=== PATIENT | male | born 1950 | race Caucasian/White ===

== ENCOUNTER 2018-12-09 16:31 | Inpatient (IN) | payer OTHER ==
--- NOTE | 2018-12-09 16:34 | EDPHY ---
H & P Time Seen by Provider: 12/09/18 16:31 Constitutional: Initial Vital Signs Temperature (C) 36.5 C 12/09/18 16:45 Heart Rate 80 12/09/18 16:45 Respiratory Rate 18 12/09/18 16:45 Blood Pressure 109/75 12/09/18 16:45 O2 Sat (%) 97 12/09/18 16:45 O2 Delivery Mode Room Air Allergies/Adverse Reactions: No Known Allergies Allergy (Unverified 12/09/18 16:50) Medical Decision Making - Diagnostics Imaging Results: Imaging Impressions Head CT 12/09/18 16:44 Impression: 1. No evidence for acute intracranial abnormality. 2. Mild periventricular and deep hemispheric white matter change, which is nonspecific and can be seen with small vessel ischemic disease. Results called and discussed with the evaluation assistant for Jacinto North M.D., on December 09, 2018 at 1650.. Head CTA 12/09/18 16:44 Impression: Mild narrowing of the petrous portion of the right internal carotid artery. Otherwise, unremarkable CT angiogram of the head and neck. Stenoses are calculated using [place] Symptomatic Carotid Endarterectomy Trial (NASCET) criteria. Findings and recommendations discussed with Jacinto North MD's evaluation assistant at 1738 hour, 12/09/2018. Neck CTA 12/09/18 16:44 Impression: Mild narrowing of the petrous portion of the right internal carotid artery. Otherwise, unremarkable CT angiogram of the head and neck. Stenoses are calculated using [place] Symptomatic Carotid Endarterectomy Trial (NASCET) criteria. Findings and recommendations discussed with Jacinto North MD's evaluation assistant at 1738 hour, 12/09/2018. Imaging: Discussed imaging studies w/ order desk caller Radiologist, I viewed and interpreted images myself ED Course/Re-evaluation: CHIEF COMPLAINT: Stroke alert HISTORY OF PRESENT ILLNESS: The patient is a 68 y/o male with a history of a TBI arriving via EMS as a stroke alert. Starting at 09:30, 7 hours ago, the patient was unable to say the words he was thinking and also developed a severe headache. Just prior to the onset of symptoms he took 2 bong hits, which is normal. After his symptoms started he went skiing. As his symptoms did not improve today and remained the same all day, he called EMS. EMS noted that the patient had difficult putting his sentences together. EMS gave the patient 50mcg IV Fentanyl for his headache and did an EKG which revealed occasional PVC's. The patient denies seeing a physician "in years". He is not on anticoagulants. No fever, body aches, lightheadedness, chest pain, heart palpitations, shortness of breath, cough, abdominal pain, urinary or bowel complaints, numbness, paresthesias. REVIEW OF SYSTEMS: A 10 point review of systems was performed and is negative with the exception of the elements mentioned in the history of present illness. PHYSICAL EXAM: HR, BP, O2 Sat, RR. Temp noted General Appearance: Alert, well hydrated, appropriate, and non-toxic appearing. Head: Atraumatic without scalp tenderness or obvious injury Eyes: Pupils equal, round, reactive to light and accommodation, EOMI, no trauma , no injection. Ears: Clear bilaterally, no perforation, normal landmarks Nose: Atraumatic, no rhinorrhea, clear. Throat: There is no erythema or exudates, no lesions, normal tonsils, mucus membranes moist. Neck: Supple, 2+ carotid upstroke, nontender, no lymphadenopathy. Respiratory: No retractions, no distress, no wheezes, and no accessory muscle use. Lungs are clear to auscultation bilaterally. Cardiovascular: Regular rate and rhythm, no murmurs, rubs, or gallops. Bilateral carotid, radial, dorsalis pedis, and posterior tibial pulses intact. Good capillary refill all extremities. Gastrointestinal: Abdomen is soft, nontender, non-distended, no masses, no rebound, no guarding, no peritoneal signs. Musculoskeletal: Normal active ROM of all extremities, atraumatic. Neurological: Dysarthric speech Alert and interactive. The patient has normal DTRs and non-focal, motor, sensory, and cerebellar exam. Skin: No rashes, good turgor, no nodules on palpation. Past medical history: TBI Past surgical history: Unknown Family history: Unknown Social history: Lives in [place], retired, single DIAGNOSTICS/PROCEDURES/CRITICAL CARE TIME: Head CT: No acute findings. Head CTA: No acute findings. Neck CTA: Mild narrowing of the petrous portion of the right internal carotid artery. Otherwise, unremarkable CT angiogram of the head and neck. DIFFERENTIAL DIAGNOSIS: The differential diagnosis for the patient's neurologic deficits included but was not limited to peripheral causes, central causes including CVA, TIA, electrolyte abnormalities and dehydration, cardiogenic causes, atypical causes like migraine syndrome. MEDICAL DECISION MAKING: The patient is a 68 y/o male with a history of a TBI arriving via EMS as a stroke alert. Starting at 09:30, 7 hours ago, the patient was unable to say the words he was thinking and also developed a severe headache. After his symptoms started he went skiing. As his symptoms did not improve today and remained the same all day, he called EMS. EMS noted that the patient had difficult putting his sentences together. On exam the patient is unable to state the words he is thinking. Patient has dysarthric speech and could have an infarct of Broca's area. He has an otherwise normal neuro exam and has no peripheral deficits. 1630: I met EMS upon arrival. 1648: Patient is back from CT. 1648: I spoke with the radiologist who reports that there are no acute findings on the head CT. Head/neck CTA ordered. 1649: Dr. Tate from [facility] was on the stroke robot. She does agree that this patient is having a Broca's aphasia but no other deficits. He is well out of the window for tPA since his symptoms started at 9:00 a.m.. Notably , he did ski all day. We are awaiting CT angiography of the neck and head. If there is any positive findings all discussed with Dr. Tate for possible transfer to [facility] otherwise we will keep the patient here in continue stroke workup. I have given this patient 1 aspirin. 1738: I spoke with Dr. Byrnes, radiologist, regarding patient's head/neck CTA. There is a minor narrowing of the right inferior carotid artery without flow limitations. 1752: I consulted with the hospitalist service, Dr. Gandara accepts admission of this patient. - Data Points Laboratory Results: Laboratory Results 12/09/18 16:35 12/09/18 16:35 12/09/18 12/09/18 12/09/18 16:41 16:37 16:36 WBC RBC Hgb POC Hgb 16.3 gm/dL gm/dL TNP (13.7-17.5) Hct POC Hct 48 % % TNP (40-51) MCV MCH MCHC RDW Plt Count MPV Neut % (Auto) Lymph % (Auto) [place] % (Auto) Eos % (Auto) Baso % (Auto) Nucleat RBC Rel Count Absolute Neuts (auto) Absolute Lymphs (auto) Absolute Monos (auto) Absolute Eos (auto) Absolute Basos (auto) Absolute Nucleated RBC Immature Gran % Immature Gran # POC Sodium 143 mEq/L mEq/L TNP (135-145) Sodium POC Potassium 4.0 mEq/L mEq/L TNP (3.3-5.0) Potassium POC Chloride 109 mEq/L mEq/L TNP (97-110) Chloride Carbon Dioxide POC Total CO2 18 mEq/L L mEq/L TNP (22-31) Anion Gap POC BUN 16 mg/dL mg/dL TNP (7-23) BUN Creatinine POC Creatinine 1.1 mg/dL mg/dL 1.1 mg/dL mg/dL (0.7-1.3) (0.7-1.3) Estimated GFR Glucose POC Glucose 117 mg/dL H mg/dL 117 mg/dL H mg/dL (70-100) (70-100) Calcium POC Troponin I 0.00 ng/mL ng/mL (0.00-0.08) 12/09/18 12/09/18 16:35 16:35 WBC 11.27 10^3/uL H 10^3/uL (3.80-9.50) RBC 5.31 10^6/uL 10^6/uL (4.40-6.38) Hgb 16.1 g/dL g/dL (13.7-17.5) POC Hgb Hct 47.2 % % (40.0-51.0) POC Hct MCV 88.9 fL fL (81.5-99.8) MCH 30.3 pg pg (27.9-34.1) MCHC 34.1 g/dL g/dL (32.4-36.7) RDW 13.5 % % (11.5-15.2) Plt Count 267 10^3/uL 10^3/uL (150-400) MPV 8.9 fL fL (8.7-11.7) Neut % (Auto) 73.2 % % (39.3-74.2) Lymph % (Auto) 19.2 % % (15.0-45.0) [place] % (Auto) 6.7 % % (4.5-13.0) Eos % (Auto) 0.3 % L % (0.6-7.6) Baso % (Auto) 0.4 % % (0.3-1.7) Nucleat RBC Rel Count 0.0 % % (0.0-0.2) Absolute Neuts (auto) 8.26 10^3/uL H 10^3/uL (1.70-6.50) Absolute Lymphs (auto) 2.16 10^3/uL 10^3/uL (1.00-3.00) Absolute Monos (auto) 0.75 10^3/uL 10^3/uL (0.30-0.80) Absolute Eos (auto) 0.03 10^3/uL 10^3/uL (0.03-0.40) Absolute Basos (auto) 0.05 10^3/uL 10^3/uL (0.02-0.10) Absolute Nucleated RBC 0.00 10^3/uL 10^3/uL (0-0.01) Immature Gran % 0.2 % % (0.0-1.1) Immature Gran # 0.02 10^3/uL 10^3/uL (0.00-0.10) POC Sodium Sodium 139 mEq/L mEq/L (135-145) POC Potassium Potassium 4.2 mEq/L mEq/L (3.5-5.2) POC Chloride Chloride 109 mEq/L mEq/L (97-110) Carbon Dioxide 19 mEq/l L mEq/l (22-31) POC Total CO2 Anion Gap 11 mEq/L mEq/L (6-14) POC BUN BUN 16 mg/dL mg/dL (7-23) Creatinine 1.1 mg/dL mg/dL (0.7-1.3) POC Creatinine Estimated GFR > 60 Glucose 112 mg/dL H mg/dL (70-100) POC Glucose Calcium 10.1 mg/dL mg/dL (8.5-10.4) POC Troponin I Medications Given: Discontinued Medications Aspirin (Aspirin) 324 mg PO EDNOW ONE Stop: 12/09/18 17:07 Last Admin: 12/09/18 17:38 Dose: 324 mg Sodium Chloride (Ns) 1,000 mls @ 0 mls/hr IV EDNOW ONE; Wide Open PRN Reason: Protocol Stop: 12/09/18 16:56 Last Admin: 12/09/18 17:01 Dose: 1,000 mls Point of Care Test Results: Chemistry 12/09/18 12/09/18 12/09/18 16:41 16:37 16:36 POC Sodium 143 mEq/L mEq/L TNP (135-145) POC Potassium 4.0 mEq/L mEq/L TNP (3.3-5.0) POC Chloride 109 mEq/L mEq/L TNP (97-110) POC Total CO2 18 mEq/L L mEq/L TNP (22-31) POC BUN 16 mg/dL mg/dL TNP (7-23) POC Creatinine 1.1 mg/dL mg/dL 1.1 mg/dL mg/dL (0.7-1.3) (0.7-1.3) POC Glucose 117 mg/dL H mg/dL 117 mg/dL H mg/dL (70-100) (70-100) POC Troponin I 0.00 ng/mL ng/mL (0.00-0.08) ISTAT H&H 12/09/18 12/09/18 16:41 16:36 POC Hgb 16.3 gm/dL gm/dL TNP (13.7-17.5) POC Hct 48 % % TNP (40-51) Departure - Departure Disposition: [facility] Inpatient Acute Clinical Impression: Broca's aphasia Condition: Fair Referrals: Patient,NotPresent [Primary Care Provider] - As per Instructions Report Scribed for: Jacinto North Report Scribed by: Magaly Addison Date of Report: 12/09/18 Time of Report: 16:35
[2018-12-09 16:50] LABS: PLATELET COUNT 267 10^3/uL (150-400)
[2018-12-09] MEDS ORDERED: IOPAMIDOL (ISOVUE 370) 100 ML BTL IV ONE (16:54)
[2018-12-09] MEDS ORDERED: NS 1,000 ML IV ONE (16:55)
[2018-12-09] MEDS ORDERED: ASPIRIN 81 MG CHEWABLE TAB PO ONE (17:06)
--- NOTE | 2018-12-09 18:06 | PDGENHP ---
History and Physical - Chief Complaint aphasia - History of Present Illness Patient is a 68 yo M with no significant known PMH who presents after waking up this morning with inability to speak the words he was thinking. History is limited by patients ongoing expressive aphasia, though he can speak some words coherently he is unable to provide a full history. Apparently when he woke this am at 930, he noted that he was unable to say what he was thinking. At that point he took a couple of 'bong hits' per his friend and then went skiing. His symptoms did not improve over the course of the day and he presented to the ER approximately 7 hours after sxs onset with ongoing Broca's aphasia. He does not have any other associated sxs including numbness or weakness. He states that prior to today he was feeling well. He has never had something similar occur in the past. History Information - Allergies/Home Medication List Allergies/Adverse Reactions: No Known Allergies Allergy (Unverified 12/09/18 16:50) Home Medications: NK [No Known Home Meds] 12/09/18 [Last Taken Unknown] I have personally reviewed and updated: family history, medical history, social history, surgical history - Past Medical History Additional medical history: hx of TBI - Surgical History Reports: no pertinent surgical hx - Family History Positive for: non-pertinent - Social History Smoking Status: Former smoker Alcohol Use: Occasionally Drug Use: Marijuana Additional social history: lives in [facility] Review of Systems Review of Systems: ROS: 10pt was reviewed & negative except for what was stated in HPI & below Physical Exam Physical Exam: Temp Pulse Resp BP Pulse Ox 36.7 C 75 16 135/75 H 98 12/09/18 17:39 12/09/18 17:39 12/09/18 17:39 12/09/18 17:39 12/09/18 17:39 Constitutional: appears nourished, not in pain Eyes: PERRL, anicteric sclera Ears, Nose, Mouth, Throat: moist mucous membranes, hearing normal Cardiovascular: regular rate and rhythym, no murmur, rub, or gallop Respiratory: no respiratory distress, no rales or rhonchi Gastrointestinal: normoactive bowel sounds, soft, non-tender abdomen Genitourinary: no bladder tenderness Skin: warm, normal color Musculoskeletal: full muscle strength Neurologic: CN II-XII Intact, other (expressive aphasia), No weakness, No numbness Psychiatric: interacting appropriately, anxious Lab Data & Imaging Review 12/09/18 16:35 12/09/18 16:35 WBC 11.27 10^3/uL (3.80-9.50) H 12/09/18 16:35 RBC 5.31 10^6/uL (4.40-6.38) 12/09/18 16:35 Hgb 16.1 g/dL (13.7-17.5) 12/09/18 16:35 POC Hgb 16.3 gm/dL (13.7-17.5) 12/09/18 16:41 Hct 47.2 % (40.0-51.0) 12/09/18 16:35 POC Hct 48 % (40-51) 12/09/18 16:41 MCV 88.9 fL (81.5-99.8) 12/09/18 16:35 MCH 30.3 pg (27.9-34.1) 12/09/18 16:35 MCHC 34.1 g/dL (32.4-36.7) 12/09/18 16:35 RDW 13.5 % (11.5-15.2) 12/09/18 16:35 Plt Count 267 10^3/uL (150-400) 12/09/18 16:35 MPV 8.9 fL (8.7-11.7) 12/09/18 16:35 Neut % (Auto) 73.2 % (39.3-74.2) 12/09/18 16:35 Lymph % (Auto) 19.2 % (15.0-45.0) 12/09/18 16:35 [place] % (Auto) 6.7 % (4.5-13.0) 12/09/18 16:35 Eos % (Auto) 0.3 % (0.6-7.6) L 12/09/18 16:35 Baso % (Auto) 0.4 % (0.3-1.7) 12/09/18 16:35 Nucleat RBC Rel Count 0.0 % (0.0-0.2) 12/09/18 16:35 Absolute Neuts (auto) 8.26 10^3/uL (1.70-6.50) H 12/09/18 16:35 Absolute Lymphs (auto) 2.16 10^3/uL (1.00-3.00) 12/09/18 16:35 Absolute Monos (auto) 0.75 10^3/uL (0.30-0.80) 12/09/18 16:35 Absolute Eos (auto) 0.03 10^3/uL (0.03-0.40) 12/09/18 16:35 Absolute Basos (auto) 0.05 10^3/uL (0.02-0.10) 12/09/18 16:35 Absolute Nucleated RBC 0.00 10^3/uL (0-0.01) 12/09/18 16:35 Immature Gran % 0.2 % (0.0-1.1) 12/09/18 16:35 Immature Gran # 0.02 10^3/uL (0.00-0.10) 12/09/18 16:35 POC Sodium 143 mEq/L (135-145) 12/09/18 16:41 Sodium 139 mEq/L (135-145) 12/09/18 16:35 POC Potassium 4.0 mEq/L (3.3-5.0) 12/09/18 16:41 Potassium 4.2 mEq/L (3.5-5.2) 12/09/18 16:35 POC Chloride 109 mEq/L (97-110) 12/09/18 16:41 Chloride 109 mEq/L (97-110) 12/09/18 16:35 Carbon Dioxide 19 mEq/l (22-31) L 12/09/18 16:35 POC Total CO2 18 mEq/L (22-31) L 12/09/18 16:41 Anion Gap 11 mEq/L (6-14) 12/09/18 16:35 POC BUN 16 mg/dL (7-23) 12/09/18 16:41 BUN 16 mg/dL (7-23) 12/09/18 16:35 Creatinine 1.1 mg/dL (0.7-1.3) 12/09/18 16:35 POC Creatinine 1.1 mg/dL (0.7-1.3) 12/09/18 16:41 Estimated GFR > 60 12/09/18 16:35 Glucose 112 mg/dL (70-100) H 12/09/18 16:35 POC Glucose 117 mg/dL (70-100) H 12/09/18 16:41 Calcium 10.1 mg/dL (8.5-10.4) 12/09/18 16:35 POC Troponin I 0.00 ng/mL (0.00-0.08) 12/09/18 16:37 Visualized and Interpreted imaging results: Yes Interpretation: head ct: negative. head/neck CTA: mild right ICA narrowing otherwise negative. brain MRI: acute infarct brocas area Assessment & Plan Assessment: Broca's aphasia (Acute) 68 yo M with no known PMH other than TBI presenting with Broca's aphasia found to have acute left frontal lobe infarct # acute CVA: present in Broca's area with associated Broca's aphasia, sxs began at least 7 hours prior to presentation so not TPA candidate, admitted to hospital, monitoring on telemetry, lipid panel and A1c ordered as well as pt/ot/ [employer]. Neurology to evaluate in am. No significant vascular disease noted on head/ neck CTA other than mild narrowing of right ICA. Echo in am. # leukocytosis: mildly elevated, likely stress response, will trend overnight but no infectious sxs # hyperglycemia: likely stress response but a1c ordered # IP status Patient new to my care. Old records reviewed and summarized as above. Care plan reviewed with ER doctor, further hx obtained from patients friend present at bedside.
[2018-12-10 05:09] LABS: PLATELET COUNT 245 10^3/uL (150-400)
[2018-12-10] MEDS: ASPIRIN 81 MG CHEWABLE TAB PO SCH (09:06)
--- NOTE | 2018-12-10 09:57 | ASMTCMCOM ---
CM Note CM Note Notes: CM reviewed chart for d/c planning. Pt is a 68 y/o male who presented to the ED following a loss of being able to vocalize his thoughts and an onset of a severe headache; these occured 7 hours earlier. He chose to ski after these events and came into the hospital when they persisted. He was found to have a CVA with Broca's amnesia. No therapies have been ordered. He lives independently in [place]. No CM needs have been identified; CM will follow for recommendations. D/C Plan: TBD Date Signed: 12/10/2018 09:56 AM Electronically Signed By:Swetha Arteaga
--- NOTE | 2018-12-10 10:49 | PDMN ---
Medical Necessity Medical necessity: Pt meets inpt criteria per MD order and [facility] M-83, Stroke: Ischemic, 2 days. 68 y/o presenting w/Brocha's aphasia found to have acute L frontal lobe infarct, confirmed on MRI, meets inpt critieria for +acute ischemic stroke.
[2018-12-10] MEDS: ACETAMINOPHEN 500 MG TAB PO SCH ×2 (12:42→21:02)
--- NOTE | 2018-12-10 14:06 | NEUROPROG ---
Assessment: [id number] - Neurology Consult: - CC: Stroke - HPI: 12/10/18: Pt w/o PMHx felt fine on 12/08/18 but awoke on 12/09/18 with speech issues. 7 hours later presented to [facility] ER. Head CT and CTA head/neck generally unremarkable but brain MRI wo showed left cortical frontal acute stroke to explain his symptoms. Pt on no meds prior to admission so started on aspirin 81 mg qd for stroke prevention. Neurologic exam on 12/10/18 showed expressive aphasia. - PMHx: TBI - SHx: prior tobacco use FHx: no strokes - ROS: Pt denied acute fever, total vision loss, active severe chest pain, respiratory failure, total body severe rash, total bowel/bladder incontinence, psychosis, active seizures, or active bleeding - O: VS reviewed General: Alert Eyes: Fundoscopic exam not able to visualize optic disks CV: Heart RRR, no murmur, no carotid bruit Lungs: Clear to auscultation bilaterally, no rhonchi or rales Neuro: - Mental: . Oriented x person/place/date . concentration appears normal . speech fluency/comprehension shows expressive aphasia . memory appears normal . fund of knowledge appear intact - Cranial Nerves: . II: PERRL, VFFTC . III/IV/: EOMI, no nystagmus, normal smooth pursuits, no Ptosis . V: facial sensation intact to LT . VII: face symmetric to eye closure and smile . VIII: hearing intact to conversation . IX/X: uvula raises symmetrically . XI: SCM 5/5 B/L strength . XII: tongue protrudes midline w/nl strength - Motor: . Tone: normal tone in all 4 extremity . Strength: no pronator drift, strength 5/5 throughout (right shoulder slightly weak but per patient is due to chronic shoulder issue) - Reflexes: B/L bic/BR/patella 2/4 - Sensory: all 4 extremity intact to light touch - Coord: areide-ot-psmg wnl, KATIE wnl, tkon-ji-qoyz wnl - Gait: deferred - Labs: 12/10/18- H1AC pending, LDL 107H - Rads: 12/09/18- Head CT: no bleed - 12/09/18- Head/neck CTA: Mild narrowing of the petrous portion of the right internal carotid artery. Otherwise, unremarkable CT angiogram of the head and neck. - 12/09/18- Brain MRI wo: Acute infarct in the posterolateral left frontal lobe in Broca's area. Also, a tiny infarct seen in the anterolateral left frontal lobe and deep hemispheric white matter of the posterior left frontal lobe. (I personally visualized the images on 12/09/18) - Assessment: 1. Left cortical frontal stroke on 12/09/18 causing speech disturbance: given cortical location of stroke there is concern for cardioembolic source - Plan: - TTE - 24 hour telemetry - If telemetry/TTE does not show cause of stroke then recommend discharging with [facility] for 1-6 months to assess for paroxysmal afib - Begin aspirin 81 mg qd for stroke prevention - Blood pressure goal < 220/120 x 48 hours then < 140/90 - H1AC goal < 7.0 (pending) - LDL goal < 70 (107), recommend beginning statin - PT/OT/Speech to determine rehab needs - F/U 1-6 weeks after hospital discharge in neurology clinic Objective: Vital Signs Temp Pulse Resp BP Pulse Ox 36.6 C 64 15 133/87 H 97 12/10/18 11:27 12/10/18 11:27 12/10/18 11:27 12/10/18 11:27 12/10/18 11:27 Laboratory Results 12/10/18 04:16 12/10/18 04:16 12/09/18 12/10/18 12/11/18 05:59 05:59 05:59 Intake Total 600 Balance 600 Allergies/Adverse Reactions: No Known Allergies Allergy (Unverified 12/09/18 16:50)
--- NOTE | 2018-12-10 14:46 | ECHO ---
[email or web address] [address] [address] Main: [phone] Echocardiography Examination Transthoracic Name: PATITO HERNDON MR#: [id number] Study Date: 12/10/2018 Study Time: 10:08 AM Date of : 1950 Age: 68 year(s) Height: 180.3 cm (71 in.) Weight: 86.64 kg (191 lb.) BSA: 2.07 m2 Gender: Male Examination: Echo with Agitated Saline Contrast: I.V. dose of agitated saline Image Quality: Adequate Rhythm: Normal sinus rhythm Heart Rate: 64 bpm BP: 120 mmHg/74 mmHg Indication: ischemic stroke with bubble Procedure Staff Referring Physician: Customer Support Executive: Trinidad Blank [facility] [place] Physician: Queenie Travis MD Requesting Provider: Ordering Physician: Jennifer Gandara Indication: ischemic stroke with bubble Measurements Chambers AV/MV Label Value Normal Value Label Value Normal Value LVOT Vmax 0.66 m/s (0.7m/s - 1.1m/s) AV PGmax 11 mmHg LVOTd 2.2 cm (1.9cm - 2.1cm) AV Vmax 1.63 m/s LVDd, 2D 4.4 cm (4.2cm - 5.9cm) LANDEN (Vmax) 1.5 cm2 LVDs, 2D 3.1 cm (2.1cm - 4cm) MV E Vmax 0.58 m/s IVSd, 2D 1 cm (0.6cm - 1.1cm) MV A Vmax 0.67 m/s LVPWd, 2D 0.9 cm (0.6cm - 1cm) MV E/A 0.87 LVEF, BP 58 % (55% - 70%) MV E/E' lateral 9.6 LVEF, 2D 55 % (54% - 74%) MV E/E' septal 9.3 (0.45 - 1.25) RVDd, 2D 3.9 cm (1.9cm - 3.8cm) MV DT 363 ms TAPSE 2.3 cm MV E' septal 0.06 m/s LA Volume, BP 57 ml (18ml - 58ml) MV E' lateral 0.06 m/s LADs, 2D 4.3 cm (3cm - 4cm) MV E/E' mean 9.67 LAESV index, BP 27.5 ml/m2 MV E' mean 0.06 m/s RA Area 21 cm2 TV/PV Additional Vessels Label Value Normal Value Label Value Normal Value PV PGmax 3 mmHg AoAsc 3.2 cm PV Vmax, Caliper 0.93 m/s (0.6m/s - 0.9m/s) AoRoot, 2D 3.4 cm (1.4cm - 2.6cm) Patient: PATITO HERNDON Study Date: 12/10/2018 Page 1 of 3 10:08 AM Conclusions 1. The left ventricle is normal in size and systolic function. Ejection fraction is 58%. Normal wall motion. Normal diastolic function. 2. Mildly dilated right ventricle with preserved systolic function. 3. The right atrium is mildly dilated. 4. mild mitral regurgitation. 5. unable to assess PA systolic pressure. 6. Negative bubble study indicating no significant intracardiac shunting. 7. No obvious cardiac source of embolism seen on this study. DENYS is more sensitive to detect cardiac source of embolism. 8. No previous echocardiogram. Findings Left Ventricle: Left ventricle is normal in size. Normal global systolic left ventricular function. EF evaluated by EF (biplane Tovar's). The ejection fraction, measured by Simpsons method, is 58 %. EF range is estimated at 55 % - 60 %. Left ventricle wall thickness is normal. There are no regional wall motion abnormalities. Left ventricular diastolic function parameters are normal. Right Ventricle: Mildly dilated right ventricle. Right ventricular systolic function is normal. Left Atrium: The left atrium is normal in size. IAS: An agitated saline study was performed and was negative for intracardiac shunting. Right Atrium: The right atrium is mildly dilated. Mitral Valve: Mitral valve appears structurally normal. Mild mitral regurgitation. No mitral valve stenosis. Aortic Valve: No aortic valve regurgitation. There is no aortic stenosis. Aortic leaflets exhibit mild calcification. Tricuspid Valve: Tricuspid valve leaflets are structurally normal. Trivial tricuspid regurgitation. Pulmonary artery pressure cannot be assessed due to inadequate TR signal. Pulmonic Valve: Pulmonic leaflets are structurally normal. No pulmonic valve regurgitation is evident. Aorta: The aortic root size in 2D measures 3.4 cm. The aortic root exhibits normal size. The ascending aorta measures 3.2 cm. Ascending aorta is normal in size. Aorta Measurements AoRoot, 2D is 3.4 cm. IVC: The inferior vena cava is poorly visualized. Pericardium: No pericardial effusion. Exam Details Procedure Ordered: Echo with Agitated Saline Procedure Status: Routine study Image Quality: Adequate Contrast: I.V. dose of agitated salineIntravenous contrast was administered to evaluate intracardiac shunting Facility Location: Cardiac Echo 1 Patient: PATITO HERNDON Study Date: 12/10/2018 Page 2 of 3 10:08 AM (No Signature Object) Patient: PATITO HERNDON Study Date: 12/10/2018 Page 3 of 3 10:08 AM [id number]
--- NOTE | 2018-12-10 15:31 | CPEKG ---
Test Reason : OPEN Blood Pressure : / mmHG Vent. Rate : 060 BPM Atrial Rate : 060 BPM P-R Int : 185 ms QRS Dur : 089 ms QT Int : 419 ms P-R-T Axes : 002 -26 047 degrees QTc Int : 419 ms Sinus rhythm Ventricular premature complex Borderline left axis deviation Anteroseptal infarct, old Confirmed by Queenie Travis ([id number]) on 12/10/2018 3:31:00 PM Referred By: Jennifer Gandara Confirmed By:Queenie Travis
--- NOTE | 2018-12-10 17:09 | HOSPPROG ---
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, cortical, expressive aphasia * No evidence of AFib * No evidence of abnormalities on echocardiogram * Mildly elevated cholesterol 105 * Normal blood pressures without treatment * No previous use of prophylactic aspirin * No tobacco use or street drug use PLANS: * Continue monitoring on cardiac EKG * Continue speech therapy assessments * May eat regular diet * Aspirin 81 mg started * I reviewed advantages and possible side effects of Lipitor and patient is agreeable to starting Lipitor, will need follow-up labs * Consider link recorder if nothing seen on multimedia manager here * I spent considerable time today with the patient and his daughter reviewing stroke prevention strategies, monitoring for symptoms of stroke in the future, and the need to come immediately to emergency care any time hear any but he is with seems to be having possible stroke and have answered all their questions around these issues I reviewed in detail with Dr. 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 No problems with comprehension no cranial nerve or motor weakness skin warm dry color ok resps not labored lungs clear BSs heart regular abd soft nondistended nontender, bowel sounds present limbs warm, no edema iv site ok Lab data: LDL cholesterol 105 Hemoglobin A1c pending Basic metabolic panel unremarkable including glucose 87 Echocardiogram: No abnormalities on bubble study, no other significant or concerning abnormalities nothing that would explain stroke Imaging: I reviewed images of his MRI brain which show 3 abnormalities on diffusion- weighted imaging. 1 of these is the largest in Broca's area cortex, the other 2 are in adjacent posterior frontal lobe areas on the left under notably smaller Objective: Vital Signs Temp Pulse Resp BP Pulse Ox 36.6 C 71 18 122/76 H 96 12/10/18 15:51 12/10/18 15:51 12/10/18 15:51 04/20/19 15:51 12/10/18 15:51 Laboratory Results 12/10/18 04:16 12/10/18 04:16 12/09/18 12/10/18 12/11/18 06:59 06:59 06:59 Intake Total 600 Balance 600 - Time Spent With Patient Time Spent with Patient: greater than 35 minutes Time Spent with Patient: Greater than 35 minutes spent on this patients care, greater than 50% of time spent counseling, educating, and coordinating care regarding the above mentioned plan. ICD10 Worksheet Patient Problems: Problems Problem Status Onset Broca's aphasia Acute
[2018-12-10] MEDS: ATORVASTATIN CALCIUM 10 MG TAB PO SCH (18:41)
[2018-12-11] MEDS: ACETAMINOPHEN 500 MG TAB PO SCH ×2 (05:47→08:05)
[2018-12-11 07:46] VITALS: BP 134/70
[2018-12-11] MEDS: ATORVASTATIN CALCIUM 10 MG TAB PO SCH (08:06)
[2018-12-11] MEDS: ASPIRIN 81 MG CHEWABLE TAB PO SCH (08:06)
--- NOTE | 2018-12-11 11:08 | PDDCSUM ---
Discharge Summary Discharge Summary: DISCHARGE DIAGNOSES: * Acute left-sided ischemic CVA with expressive aphasia, improving symptoms * TPA was not given due to late presentation * Hypercholesterolemia CONSULTANTS: Dr. Power Prabhakar PROCEDURES: CT scan of brain with no acute abnormality MRI of brain showing left-sided ischemic cortical infarcts consistent with his expressive aphasia CT angio of head and neck without significant vascular disease noted HOSPITAL COURSE SUMMARY: This patient presented to the ER after suffering onset of severe expressive aphasia. His presentation to the ER was delayed as he decided that he preferred to go skiing before coming to the hospital and spent the day skiing. On arrival here he did have some fairly marked expressive aphasia. Imaging studies were unremarkable and the rest of his neurologic exam was unremarkable. He was brought into the hospital and watched on EKG monitoring where he remained in sinus rhythm throughout his stay. His vital signs were all good. There is no signs of fever, hypoglycemia. Urine drug screen did not show use of any stimulants or other vasoconstrictor agents. He is not diabetic. His lipid panel shows an LDL 105. Echocardiogram did not show any concerning abnormalities that could lead to increased risk of stroke. In the hospital patient's expressive aphasia improved quite noticeably though he is not back to 100% normal at this time. He has had no other neurologic episodes, no symptoms of cardiac nature, no fevers and no other acute issues here. At this point he is stable for discharge to home. Will need ongoing outpatient speech language therapy, and is started on aspirin and Lipitor at this time. He understands the need for these medicines. I have reviewed the potential side effects of aspirin including bleeding, and Lipitor including serious muscle injuries. He understands to contact his physicians promptly if he is having any problems with these medicines. The patient also did receive significant education regarding management of acute stroke and he understands to call 911 immediately if here anyone around him seems to be possibly having stroke. PENDING TEST RESULTS: None MEDICATION CHANGES: Addition of aspirin 81 mg daily for the rest of his life Addition of Lipitor 10 mg daily FOLLOW-UP PLAN: With Dr. Prabhakar in neurology clinic in the next month With his primary care physician 2-4 weeks Greater than 35 minutes bedside and care coordination time today
--- NOTE | 2018-12-11 11:33 | ASMTDCNOTE ---
Case Management Discharge Discharge Order Complete? Answers: Yes Patient to Obtain Answers: Independently Medications Transportation Arranged Answers: Family/Friends Family Notified Answers: Yes Discharge Comments Notes: Patient has been medically cleared for independent discharge to home. No acute needs at this time. Follow up for neurology in 1 month and PCP in 2-4 weeks. Patient is to seek outpatient speech therapy for aphasia. CM available should other needs arise. Date Signed: 12/11/2018 11:33 AM Electronically Signed By:Tequila Null RN
--- NOTE | 2018-12-11 12:33 | ASMTCMCOM ---
CM Note CM Note Notes: Spoke with pt in the room. Pt has no Medicare or PCP. Pt given resources for [facility] on Aging in order to begin Medicare enrollment process. Pt also given contact information for a primary care physician in [place], where pt lives and for [facility] outpatient rehab for speech therapy follow up. At pt's request, CM left messages with both of these offices with pt's phone number to initiate follow up appointments. Date Signed: 12/11/2018 12:33 PM Electronically Signed By:Karla Cherry
--- NOTE | 2018-12-11 12:35 | ASDISCHSUM ---
Discharge Information Plan Status:Home with No Needs Medically Cleared to Leave:12/11/2018 Discharge Date:12/11/2018 CM D/C Disposition:Home, Routine, Self-Care ADT D/C Disposition:Home Health Service Projected Discharge Date:12/11/2018 Transportation at D/C:Family Discharge Delay Reason: Follow-Up Date:12/11/2018 Discharge Slot: Final Diagnosis:Brocca's aphasia Placement Information Patient Contact Information Contact Name:JOSE Relationship: Address:[address] Work Phone: City:[place] [facility] Phone: [facility]/Zip Code:[place] [address] Email: Financial Information Financial Class:Self-Pay Primary Plan Desc:SELF PAY Primary Plan Number: Secondary Plan Desc: Secondary Plan Number: Assessment Information LACE LACE Length of stay for Answers: 2 days current admission Acuity / Level of Answers: Yes Care: Did the patient have an inpatient admission? Comorbidities - select Answers: Cerebrovascular disease all that apply (CVA, TIA, aneurysms, vasc ular dementia) # of Emergency department Answers: 1-2 visits in the last 6 months Score: 7 Date Signed: 12/11/2018 12:34 PM Electronically Signed By:Karla Cherry [facility] Progress Note CM Note CM Note Notes: ANAYELI reviewed chart for d/c planning. Pt is a 68 y/o male who presented to the ED following a loss of being able to vocalize his thoughts and an onset of a severe headache; these occured 7 hours earlier. He chose to ski after these events and came into the hospital when they persisted. He was found to have a CVA with Broca's amnesia. No therapies have been ordered. He lives independently in [place]. No CM needs have been identified; CM will follow for recommendations. D/C Plan: TBD Date Signed: 12/10/2018 09:56 AM Electronically Signed By:Swetha Arteaga Case Management Discharge Plan Note Case Management Discharge Discharge Order Complete? Answers: Yes Patient to Obtain Answers: Independently Medications Transportation Arranged Answers: Family/Friends Family Notified Answers: Yes Discharge Comments Notes: Patient has been medically cleared for independent discharge to home. No acute needs at this time. Follow up for neurology in 1 month and PCP in 2-4 weeks. Patient is to seek outpatient speech therapy for aphasia. CM available should other needs arise. Date Signed: 12/11/2018 11:33 AM Electronically Signed By:Tequila Null RN [facility] CM Progress Note CM Note CM Note Notes: Spoke with pt in the room. Pt has no Medicare or PCP. Pt given resources for [facility] on Aging in order to begin Medicare enrollment process. Pt also given contact information for a primary care physician in [place], where pt lives and for [facility] outpatient rehab for speech therapy follow up. At pt's request, CM left messages with both of these offices with pt's phone number to initiate follow up appointments. Date Signed: 12/11/2018 12:33 PM Electronically Signed By:Karla Cherry Intervention Information Intervention Type:*Incorrect Registration Date of Service:12/10/2018 10:40 AM Patient Type:Observation Staff Member:MERRILL Geronimo Patricia Hours: Discipline: Severity: Comment:
--- NOTE | 2018-12-11 14:24 | NEUROPROG ---
Assessment: [id number] - Neurology Consult: - CC: F/U for Stroke - Narrative Summary: 12/10/18: Pt w/o PMHx felt fine on 12/08/18 but awoke on 12/09/18 with speech issues. 7 hours later presented to [facility] ER. Head CT and CTA head/neck generally unremarkable but brain MRI wo showed left cortical frontal acute stroke to explain his symptoms. Pt on no meds prior to admission so started on aspirin 81 mg qd for stroke prevention. Neurologic exam on 12/10/18 showed expressive aphasia. - HPI: F/U 12/11/18. TTE showed no cause of stroke. No new symptoms. - PMHx: TBI - SHx: prior tobacco use FHx: no strokes - ROS: Pt denied acute fever, total vision loss, active severe chest pain, respiratory failure, total body severe rash, total bowel/bladder incontinence, psychosis, active seizures, or active bleeding - Labs: 12/10/18- H1AC 5.5, LDL 107H - Rads: 12/09/18- Head CT: no bleed - 12/09/18- Head/neck CTA: Mild narrowing of the petrous portion of the right internal carotid artery. Otherwise, unremarkable CT angiogram of the head and neck. - 12/09/18- Brain MRI wo: Acute infarct in the posterolateral left frontal lobe in Broca's area. Also, a tiny infarct seen in the anterolateral left frontal lobe and deep hemispheric white matter of the posterior left frontal lobe. - 12/09/18- TTE: no obvious source of stroke - Assessment: 1. Left cortical frontal stroke on 12/09/18 causing speech disturbance: given cortical location of stroke there is concern for cardioembolic source - Plan: - recommend discharging with [facility] for 1-6 months to assess for paroxysmal afib - Begin aspirin 81 mg qd for stroke prevention - Blood pressure goal < 220/120 x 24 hours then < 140/90 - H1AC goal < 7.0 (5.5) - LDL goal < 70 (107), recommend beginning statin - PT/OT/Speech to determine rehab needs - F/U 1-6 weeks after hospital discharge in neurology clinic - 35 min spent with patient, majority of time counseling on his prognosis and treatment plan Objective: Vital Signs Temp Pulse Resp BP Pulse Ox 36.6 C 63 20 134/70 H 18 L 12/11/18 07:46 12/11/18 07:46 12/11/18 07:35 12/11/18 07:46 12/11/18 07:46 Laboratory Results 12/10/18 04:16 12/10/18 04:16 12/10/18 12/11/18 12/12/18 05:59 05:59 05:59 Intake Total 600 400 Balance 600 400 Allergies/Adverse Reactions: No Known Allergies Allergy (Unverified 12/09/18 16:50)
== END 2018-12-11 14:20 | disposition home or self-care (01) | DRG 66 ==
LOC: F3N 18:23 → OBSVTOIN 22:00
PROVIDERS: ADMIT Internal Medicine; ATTEND Internal Medicine
DX: I63.9 Cerebral infarction, unspecified (principal); R47.01 Aphasia; E78.00 Pure hypercholesterolemia, unspecified; Z87.891 Personal history of nicotine dependence; R29.701 NIHSS score 1
CPT/HCPCS: 70551-PN; 80305; 82435-PO; 82565-PO; 82947-PO; 84132-PO; 84295-PO; 84484-ER; 84520-PO; 85014-ER; 92610-GN; 97161-GP; 97166-GO; Q9967